=== PATIENT | female | born 1955 | race Caucasian/White ===

== ENCOUNTER 2019-08-13 08:31 | Outpatient (CLI) | payer OTHER, SELFPAY ==
--- NOTE | ~2019-08-13 | MM_ITS ---
EXAMINATION: MM screening pawan BI w saurabh HISTORY: Screening mammogram TECHNIQUE: Craniocaudal and mediolateral oblique 3-D tomosynthesis images were obtained and synthetic 2-D images were generated. CAD analysis was submitted and interpreted. COMPARISON: No prior mammogram is available for comparison at this institution. BREAST PARENCHYMAL COMPOSITION: There are scattered areas of fibroglandular density. FINDINGS: There is no evidence of suspicious mass, calcification, or architectural distortion to sugg est malignancy in either breast. IMPRESSION: 1. No mammographic evidence of malignancy. 2. Recommend routine screening mammography in one year. BI-RADS Category 1: Negative Reviewed, dictated and finalized at location A. [employer]
== END 2019-08-13 08:32 | disposition home or self-care (01) ==
LOC: ANHIMG 08:38
PROVIDERS: Visit Provider Obstetrics & Gynecology
DX: Z12.31 Encounter for screening mammogram for malignant neoplasm of breast (principal)
CPT/HCPCS: 77063; 77067

== ENCOUNTER → 2020-09-24 01:45 | Outpatient (CLI) | payer OTHER, SELFPAY ==
[2020-09-24 19:34] LABS: SARS-CoV-2 RNA PCR Negative
== END ==
PROVIDERS: Visit Provider Obstetrics & Gynecology
DX: Z01.812 Encounter for preprocedural laboratory examination (principal); Z20.822 Contact with and (suspected) exposure to COVID-19
CPT/HCPCS: C9803; U0003; U0005

== ENCOUNTER 2020-09-27 00:26 | Day surgery (SDC) | payer OTHER, SELFPAY ==
[2020-09-19 14:11] VITALS: BMI 39.6
[2020-09-27 08:50] VITALS: BP 135/94; PULSE 75; RESP 20; TEMP 36.2; O2SAT 96
--- NOTE | 2020-09-27 09:11 | WPDANESEPPF ---
Anes - Initial Pre Proc Eval Procedure: Operation Date: 09/27/20 10:30 Proposed Procedures p Hysteroscopy Dilation and Curettage - Maura Guzman MD Date/Time: 09/27/20 09:11 Surgeon: Maura Guzman MD Pre Op Diagnosis: PMB Patient Data Age: 65 Gender: F Height: 5 ft 1 in Weight: 95.35 kg Allergies Allergy/AdvReac Type Severity Reaction Status Date / Time codeine Allergy Unknown Rash Verified 09/19/20 13:48 latex Allergy Unknown Rash Verified 09/19/20 13:48 nitrofurantoin Allergy Unknown Rash Verified 09/19/20 13:48 Penicillins Allergy Unknown Rash Verified 09/19/20 13:48 Home Medications Medication Instructions Recorded Confirmed Type tetrahydrozoline-zinc [Eye Drops 1 drp EACH EYE DAILY 09/19/20 09/19/20 History Allergy Relief] Patient hx anesthesia problems: none Family hx anesthesia problems: none PMFSH Past Medical History Medical History (Updated 09/27/20 @ 09:11 by Gonzales Cottrell MD) Morbid obesity Surgical History Surgical History (Updated 09/27/20 @ 09:14 by Gonzales Cottrell MD) History of D&C Social History Social History Smoking packs per day: 1 Smoking cigarettes per day: 20.0 Years smoked: 10 Smoking pack-years: 10.00 Smoking status: Former smoker Tobacco type: cigarettes Smoking end date: 06/24/82 Alcohol intake: never Living arrangements: with family Spiritual care concerns: No Anes - Eval Final PreProcedure Day of Procedure 09/27/20 09:11 Patient weight: morbidly obese Heart: regular rate and rhythm Lungs: clear to auscultation Airway: Mallampati scale class II Neurological: alert and oriented Last oral intake: >/= 8 hours ASA classification: III Emergent: no Anesthetic plan: proceed Anesthesia type and monitoring: general GIVS and standard monitoring Informed Consent: The patient's anesthetic plan and its attendant risks and benefits were discussed with the patient/family/POA. Questions were solicited and answers provided to the satisfaction of the patient/family/POA.
--- NOTE | 2020-09-27 09:14 | WPDHPUPDATE1 ---
History and Physical Update Update Date/Time: 09/27/20 09:14 History and Physical has been reviewed, including an updated exam of the patient. There are NO changes in the patient's condition. Risks, benefits, and alternatives have been discussed and questions answered. Patient agrees to proceed with procedure.
[2020-09-27] MEDS: ACETAMINOPHEN 500 MG TABLET 1000 MG PO (09:15)
[2020-09-27] MEDS: LACTATED RINGERS 1,000 ML 30 ML IV CONT (09:20)
[2020-09-27] MEDS: KETOROLAC 15 MG/ML VIAL (*BKC) IV PUSH (10:59)
[2020-09-27 11:10] VITALS: BP 120/80; PULSE 70; RESP 12; TEMP 36.2; O2SAT 100
--- NOTE | 2020-09-27 11:19 | PM.PROC ---
Procedure Note - Detailed Date of procedure: 09/27/20 Pre-op diagnosis: PMB Abnormal uterine bleeding, intrauterine mass Post-op diagnosis: same Procedure performed: Hysteroscopy D&C and polypectomy Description of procedure: The patient was taken the operating room. She was prepped and draped in the dorsal lithotomy position after induction of mac anesthesia. A speculum was placed in the vagina. The cervix grasped with a tenaculum. The cervix was injected at 3 and 9:00 a.m. with 1% lidocaine. Cervix was dilated up to 1 cm. The hysteroscope was inserted the intrauterine cavity and the above findings were noted. The operative channel on the hysteroscope was used to insert scissors into the intrauterine cavity. The base of a large uterine polyp was transected partially. Approximately 3/4 of the base was transected with scissors. Cervix was dilated up to about a centimeter and half. Polyp grasping forceps, myoma forceps, ring forceps were all used to remove portions the mass. Ultimately the mass was removed from its stalk. And the mass was then withdrawn from the intrauterine cavity. Considerable time was required to complete this. A medium-size curette was then used to curettage all surfaces within the endometrial cavity. The endometrial curettings were collected on a Telfa. There were submitted to the pathology department. Hysteroscope was reinserted the intrauterine cavity to re-examine the endometrial surfaces. The hysteroscope was withdrawn. The tenaculum was removed. The speculum was removed. The patient tolerated the procedure well. She was taken recovery room stable condition. Sponge lap needle counts were correct x2. Anesthesia: MAC Surgeon: Maura Guzman MD Estimated blood loss (mL): 75 Drains: No Packing: No Pathology: yes Complications: No immediate complications Condition: stable Disposition: PACU Findings: There was a large endometrial mass. It was approximately for 3-4 centimeters in length. It was a centimeter and half wide. It had a tough fibrous base.. There was normal appearing vulva vagina and cervix. Approximately a liter and half normal saline could not be accounted for during the case. Electrolytes were checked. It was normal saline.
[2020-09-27 11:22] LABS: Anion Gap 2 mmol/L (8-16); Blood Urea Nitrogen 12 mg/dL (7-17); Calcium 8.2 mg/dL (8.4-10.2); Carbon Dioxide 30 mmol/L (22-30); Chloride 106 mmol/L (98-107); Estimated CRCL calculation 99 ml/min; Estimated Glomerular Filt Rate > 60; Glucose 102 mg/dL (65-105); Magnesium 1.6 mg/dL (1.6-2.3); Phosphorus 4.1 mg/dL (2.5-4.5); Potassium 3.9 mmol/L (3.4-5.0); Sodium 138 mmol/L (137-145)
[2020-09-27 11:40] VITALS: BP 142/77; PULSE 69; RESP 12
[2020-09-27 12:00] VITALS: BP 137/90; PULSE 72; RESP 12
--- NOTE | 2020-09-27 12:10 | SUR.PHASEII ---
[id number] DR TAVERA & DR TIDWELL REVIEWED BMP RESULTS. BOTH MARGO OKTIAN TO DISCHARGE PT HOME.
== END 2020-09-27 12:10 | disposition home or self-care (01) ==
PROVIDERS: PCP Internal Medicine; Visit Provider Obstetrics & Gynecology
PROC: 0U5B8ZZ Destruction of Endometrium, Via Natural or Artificial Opening Endoscopic (ICD-10-PCS; CPT 58563; principal; 2020-09-27 10:30)
DX: N95.0 Postmenopausal bleeding (principal); N84.0 Polyp of corpus uteri; E66.01 Morbid (severe) obesity due to excess calories; Z68.39 Body mass index [BMI] 39.0-39.9, adult; Z87.891 Personal history of nicotine dependence
CPT/HCPCS: 58558; 36415; 80048; 83735; 84100; 88305; A9270; C9803; J1885; J2250; J2704; J3010; J7030; J7120; U0003; U0005